=== PATIENT | female | born 1985 | race Caucasian/White ===

== ENCOUNTER 2019-02-18 14:46 | Emergency (ER) | payer BC ==
[~2019-02-18] VITALS: Ht 172.7 cm; Wt 87.1 kg
[2019-02-18 15:03] VITALS: BP_SYST 139
--- NOTE | 2019-02-18 15:05 | NUR ---
Patient to ER bed 06 to gown for evaluation. Side rails up.
--- NOTE | 2019-02-18 15:20 | NUR ---
ER Dr. Whitmore at bedside examining patient.
[2019-02-18] MEDS ORDERED: IBUPROFEN 600 MG TABLET PO ONE (15:30)
--- NOTE | 2019-02-18 15:35 | NUR ---
Patient presented to ER with C/O left knee pain. Patient A&Ox4, afebrile, ambulatory to ER pain 12/26, denies N/V/D. Patient states she fell last night at a restaurant. Patient states she fell landing on her left knee & left elbow, denies head injury at time of fall. Patient denies other health hx.
[2019-02-18 16:55] VITALS: BP_SYST 139
--- NOTE | 2019-02-18 16:55 | NUR ---
Patient given written and verbal discharge instructions and verbalizes understanding. ER MD discussed with patient the results and treatment provided. Patient in stable condition. ID arm band removed. Rx of Naprosyn given. Patient educated on pain management and to follow up with PMD. Pain Scale 0/10 . Opportunity for questions provided and answered. Medication side effect fact sheet provided.
== END 2019-02-18 16:55 | disposition home or self-care (01) ==
LOC: SED 14:46
DX: S83.92XA Sprain of unspecified site of left knee, initial encounter (principal); R03.0 Elevated blood-pressure reading, without diagnosis of hypertension; W01.0XXA Fall on same level from slipping, tripping and stumbling without subsequent striking against object, initial encounter; Y93.89 Activity, other specified; Y92.89 Other specified places as the place of occurrence of the external cause; Y99.8 Other external cause status
CPT/HCPCS: 73564; 81025; 99283